=== PATIENT | female | born 1955 | race Caucasian/White ===

== ENCOUNTER 2017-07-23 20:01 | Emergency (ER) | payer OTHER, BC ==
[~2017-07-23] VITALS: Ht 157.5 cm; Wt 62.7 kg
[~2017-07-23 20:01] MED LIST: ALBUTEROL SULF8.5 GM IH; ALTACE5 MG PO; AMLODIPINE BESYL5 MG PO; TESSALON PERLE100 MG PO
[2017-07-23] MEDS ORDERED: NAPROXEN500 MG PO (22:28)
[2017-07-23] MEDS ORDERED: FLEXERIL10 MG PO (22:28)
[2017-07-23 22:36] VITALS: BP 143/86
== END 2017-07-23 22:39 | disposition home or self-care (01) ==
LOC: EME 20:01
DX: S39.012A Strain of muscle, fascia and tendon of lower back, initial encounter (principal); M79.652 Pain in left thigh; V49.40XA Driver injured in collision with unspecified motor vehicles in traffic accident, initial encounter
CPT/HCPCS: 73502; 99281; 99284; J1885